=== PATIENT | male | born 1935 ===

== ENCOUNTER → 2023-11-05 10:32 | Outpatient (BNVA) | payer MEDICARE, OTHER, SELFPAY | PROVIDERS: PCP Internal Medicine; Visit Provider Specialist | DX: G31.83 Neurocognitive disorder with Lewy bodies (principal); F02.B18 Dementia in other diseases classified elsewhere, moderate, with other behavioral disturbance; R56.9 Unspecified convulsions | CPT/HCPCS: 96116; 99204; 99205 ==

== ENCOUNTER → 2023-12-21 09:07 | Outpatient (BNVA) | payer MEDICARE, OTHER, SELFPAY | PROVIDERS: PCP Internal Medicine; Visit Provider Specialist | DX: G40.909 Epilepsy, unspecified, not intractable, without status epilepticus (principal); G31.83 Neurocognitive disorder with Lewy bodies; F02.B18 Dementia in other diseases classified elsewhere, moderate, with other behavioral disturbance | CPT/HCPCS: 99214 ==